=== PATIENT | female | born 1995 | race Caucasian/White ===

== ENCOUNTER 2023-12-02 05:55 | Emergency (ER) | payer SELFPAY ==
[2023-12-02 06:14] VITALS: BP 132/76; PULSE 81; RESP 18; TEMP 36.9; O2SAT 100
[2023-12-02 06:20] LABS: Basophils Absolute Auto 0.1 K/mm3 (0.0-0.1); Basophils Percent Auto 0.8 % (0.2-1.2); Eosinophils Absolute Auto 0.3 K/mm3 (0-0.3); Eosinophils Percent Auto 2.2 % (0-4.4); Hematocrit 44.2 % (37.0-47.0); Hemoglobin 14.9 g/dL (12.0-15.0); Immature Granulocyte Absolute 0.04 K/mm3 (0.00-0.031); Immature Granulocyte Percent A 0.4 % (0-0.5); Lymphocytes Absolute Auto 4.25 K/mm3 (0.9-3.2); Lymphocytes Percent Auto 37.2 % (18.3-44.2); Mean Corpuscular HGB Conc 33.7 g/dl (32-36); Mean Corpuscular Hemoglobin 30.2 pg (26-34); Mean Corpuscular Volume 89.7 fl (80-100); Mean Platelet Volume 9.3 fl (7.4-10.4); Monocytes Absolute Auto 0.6 K/mm3 (0.1-0.6); Monocytes Percent Auto 5.6 % (2.6-8.5); Neutrophils Absolute Auto 6.1 K/mm3 (1.3-6.7); Neutrophils Percent Auto 53.8 % (45.5-73.1); Platelet Count Result 345 k/mm3 (150-375); Red Blood Count 4.93 M/mm3 (4.2-5.4); Red Cell Distribution Width 14.3 % (11.5-14.5); White Blood Count 11.4 K/mm3 (4.5-10.0)
--- NOTE | 2023-12-02 06:25 | ED.GENADULT ---
HPI - General Adult General Chief complaint: GI Bleed Stated complaint: blood in stool Time Seen by Provider: 12/02/23 06:23 History of Present Illness HPI narrative: 28-year-old female presents To the emergency department for evaluation of rectal bleeding. patient states that she had a bowel movement with formed stool and when she wiped she noticed there was blood on the paper. When patient looked in the bowl she saw there was also some blood-tinged color to the water. Patient states that she did have anal sex last week, patient states she has had some burning with bowel movements since then but did not notice the blood in the stool and till today. Patient states that she has been drinking alcohol daily as of recently, she states that she has not been following a healthy diet. Patient is not on any blood thinners. Review of Systems Review of Systems: All systems reviewed & are unremarkable except as noted in HPI and below Exam Narrative: APPEARANCE: Well appearing, no pain, no distress, well-nourished. HEAD: normocephalic, atraumatic. EYES: PERRLA/EOMI, conjunctivae clear. NOSE: Normal no drainage EARS:TMS clear with good light reflex. THROAT: Pharynx clear, no exudate. NECK: Supple. No adenopathy, no masses. RESPIRATORY: Airway patent, respirations nonlabored. Clear to auscultation bilaterally, no rales, rhonchi, wheezing. CARDIOVASCULAR: Regular rate and rhythm without murmurs rubs or gallops. ABDOMINAL: Soft, nontender, nondistended, normal bowel sounds MUSCULOSKELETAL: Moves all extremities. Strength/ROM intact, No edema, No calf tenderness. NEURO: Alert. Cranial nerves II through XII intact. Good gait. Good coordination SKIN: Warm, dry. Normal Color Rectal exam: No active rectal bleeding, no external hemorrhoids, no internal hemorrhoids Course Course Emergency Course: Patient was discharged to home Vital Signs Vital signs: Vital Signs Temperature 98.5 F 12/02/23 06:14 Pulse Rate 81 12/02/23 06:14 Respiratory Rate 18 12/02/23 06:14 Blood Pressure 132/76 12/02/23 06:14 Pulse Oximetry 100 12/02/23 06:14 Oxygen Delivery Room Air 12/02/23 06:14 Temperature 98.5 F 12/02/23 06:14 Pulse Rate 81 12/02/23 06:14 Respiratory Rate 18 12/02/23 06:14 Blood Pressure 132/76 12/02/23 06:14 Pulse Oximetry 100 12/02/23 06:14 Oxygen Delivery Room Air 12/02/23 06:14 Medical Decision Making [facility] Narrative Medical decision making narrative: 28-year-old female presents emergency department for evaluation for rectal bleeding. Patient had no active external hemorrhoids were palpated internal hemorrhoids. No fissure was visualized but patient does describe symptoms of an anal fissure. I will going to order a CT scan but patient declined. Patient will be treated as anal fissure. Patient was advised to follow some rectal rest, start taking stool softeners and to stay hydrated. Patient was also provided follow-up with GI. All questions concerns were addressed patient was well-appearing at time of discharge. Patient was afebrile with a minor leukocytosis 11.4 stable hemoglobin of 14.9 normal coagulation profile and no abnormalities on her CMP. Differential Diagnosis Differential Diagnosis: Internal hemorrhoid, external hemorrhoid, anal fissure, colitis Vital Signs Vital Signs: Vital Signs Temperature 98.5 F 12/02/23 06:14 Pulse Rate 81 12/02/23 06:14 Respiratory Rate 18 12/02/23 06:14 Blood Pressure 132/76 12/02/23 06:14 Pulse Oximetry 100 12/02/23 06:14 Oxygen Delivery Room Air 12/02/23 06:14 Temperature 98.5 F 12/02/23 06:14 Pulse Rate 81 12/02/23 06:14 Respiratory Rate 18 12/02/23 06:14 Blood Pressure 132/76 12/02/23 06:14 Pulse Oximetry 100 12/02/23 06:14 Oxygen Delivery Room Air 12/02/23 06:14 Lab Data Lab results reviewed: Yes I reviewed the patient's lab results. 12/02/23 06:14 12/02/23 06:14
[2023-12-02 06:31] LABS: Alanine Aminotransferase 28 U/L (6-35); Albumin Level 4.4 g/dL (3.5-5.1); Alkaline Phosphatase 59 U/L (38-126); Anion Gap 9 mmol/L (4-12); Aspartate Amino Transferase 33 U/L (14-36); Bilirubin,Total 0.4 mg/dL (0.2-1.3); Blood Urea Nitrogen 12 mg/dL (7-17); Calcium 8.9 mg/dL (8.4-10.2); Carbon Dioxide 24 mmol/L (22-30); Chloride 107 mmol/L (98-107); Estimated CRCL calculation 106 ml/min; Estimated Glomerular Filt Rate > 60; Glucose 103 mg/dL (65-110); INR 0.9; Potassium 3.6 mmol/L (3.4-5.0); Prothrombin Time 12.5 Seconds (11.1-14.7); Sodium 140 mmol/L (137-145)
[2023-12-02 06:32] LABS: Partial Thromboplastin Time 31.9 Seconds (22.3-36.8)
--- NOTE | 2023-12-02 07:10 | PC.NURSE ---
patient is refusing CT scan since she does not have insurance. provider aware
== END 2023-12-02 07:16 | disposition home or self-care (01) ==
PROVIDERS: Emergency Provider Emergency Medicine
DX: K60.2 Anal fissure, unspecified (principal); K62.5 Hemorrhage of anus and rectum
CPT/HCPCS: 36415; 80053; 85025; 85610; 85730; 86850; 86900; 86901; 99283